=== PATIENT | female | born 1970 | race Asian ===

== ENCOUNTER 2016-12-17 10:06 | Emergency (ER) | payer MEDICAID ==
[~2016-12-17] VITALS: Ht 154.9 cm; Wt 50.0 kg
[2016-12-17] MEDS ORDERED: IOHEXOL 350 MG/ML 10 ML VIAL (for RAD DIAG) IVCONTRAST ONE (10:07)
[2016-12-17 10:11] VITALS: BP 86/94; PULSE 94; RESP 20; TEMP 98.8; O2SAT 100
[2016-12-17 10:15] VITALS: BP 167/89
[2016-12-17 10:27] VITALS: BP 170/84; PULSE 101; O2SAT 100
[2016-12-17] MEDS ORDERED: SODIUM CHLORIDE 0.9% FLUSH 10 ML FLUSH IV FLUSH PRN (10:30)
[2016-12-17 10:37] VITALS: PULSE 101; RESP 17; TEMP 97.8; O2SAT 99
--- NOTE | 2016-12-17 10:40 | PD ---
HPI Chief Complaint: Abdominal Pain Time Seen by Provider: 10:17 Travel History International Travel<30 days: No Contact w/Intl Traveler<30days: No Traveled to known affect area: No History of Present Illness HPI Patient is a 46-year-old female presenting for evaluation of abdominal pain and distention, dysuria. Patient states that she's had urinary frequency and burning with urination for the last 2 days, she reports abdominal distention and increased pain that started yesterday. Patient states normally she has a flat stomach. She reports the pain as a 4 out of 10. There are no alleviating or exacerbating factors. Azo for the urinary symptoms with no relief. She denies a fever, chills, nausea, vomiting, constipation or diarrhea. She denies any chance of with her last menstrual cycle this month. Patient denies any significant past medical history. [facility] Past Medical History Medical History: Denies Significant Hx Past Surgical History Surgical History: No Previous Surgery Social History Alcohol Use: No Tobacco Use: No Substance Use: No Allergies-Medications (Allergen,Severity, Reaction): Coded Allergies: No Known Allergies (Unverified , 12/17/16) Reported Meds & Prescriptions Reported Meds & Active Scripts Active No Active Prescriptions or Reported Medications Review of Systems Except as stated in HPI: all other systems reviewed are Neg General / Constitutional: No: Fever, Chills HENT: No: Headaches Cardiovascular: No: Chest Pain or Discomfort Respiratory: No: Shortness of Breath Gastrointestinal: Positive: Abdominal Pain, No: Nausea, Vomiting Genitourinary: Positive: Frequency, Dysuria, No: Discharge, Vaginal Bleeding Musculoskeletal: No: Myalgias Physical Exam Narrative GENERAL: Well-developed, well-nourished, alert female. Resting comfortably in no acute distress. SKIN: Warm and dry. No rash or obvious lesions noted. HEAD: Atraumatic. Normocephalic. EYES: Pupils equal and round. No scleral icterus. No injection or drainage. ENT: No nasal bleeding or discharge. Mucous membranes pink and moist. NECK: Trachea midline. No JVD. CARDIOVASCULAR: Regular rate and rhythm. RESPIRATORY: No accessory muscle use. Clear to auscultation. Breath sounds equal bilaterally. GASTROINTESTINAL: Abdomen soft, mildly tender to palpation over suprapubic region. Moderate distention noted. Hepatic and splenic margins not palpable. Positive bowel sounds, no rebound, no guarding. MUSCULOSKELETAL: Extremities without clubbing, cyanosis, or edema. No obvious deformities. NEUROLOGICAL: Awake and alert. No obvious cranial nerve deficits. Motor grossly within normal limits. Five out of 5 muscle strength in the arms and legs. Normal speech. PSYCHIATRIC: Appropriate mood and affect; insight and judgment normal. Data Data Last Documented VS Vital Signs Date Time Temp Pulse Resp B/P (MAP) Pulse Ox O2 Delivery O2 Flow Rate FiO2 12/17/16 10:37 97.8 101 17 99 Room Air Orders Orders Complete Blood Count With Diff (12/17/16 10:22) Comprehensive Metabolic Panel (12/17/16 10:22) Urinalysis - C+S If Indicated (12/17/16 10:22) Iv Access Insert/Monitor (12/17/16 10:22) Ecg Monitoring (12/17/16 10:22) Oximetry (12/17/16 10:22) Sodium Chloride 0.9% Flush (Ns Flush) (12/17/16 10:30) Ed Urine Pregnancytest Poc (12/17/16 10:22) Ed Poc Ultrasound (12/17/16 ) Ceftriaxone Inj (Rocephin Inj) (12/17/16 11:30) Ct Abd/Pel W Iv Contrast(Rout) (12/17/16 ) Urinary Catheter Insert/Apply (12/17/16 11:40) Iohexol 350 Inj (Omnipaque 350 Inj) (12/17/16 10:07) Labs Laboratory Tests Test 12/17/16 10:03 White Blood Count 7.6 TH/MM3 Red Blood Count 4.16 MIL/MM3 Hemoglobin 9.7 GM/DL Hematocrit 31.6 % Mean Corpuscular Volume 76.0 FL Mean Corpuscular Hemoglobin 23.4 PG Mean Corpuscular Hemoglobin Concent 30.8 % Red Cell Distribution Width 15.4 % Platelet Count 410 TH/MM3 Mean Platelet Volume 7.1 FL Neutrophils (%) (Auto) 74.3 % Lymphocytes (%) (Auto) 13.7 % Monocytes (%) (Auto) 6.6 % Eosinophils (%) (Auto) 4.2 % Basophils (%) (Auto) 1.2 % Neutrophils # (Auto) 5.6 TH/MM3 Lymphocytes # (Auto) 1.0 TH/MM3 Monocytes # (Auto) 0.5 TH/MM3 Eosinophils # (Auto) 0.3 TH/MM3 Basophils # (Auto) 0.1 TH/MM3 CBC Comment DIFF FINAL Differential Comment Urine Color BROWN Urine Turbidity CLEAR Urine pH 6.0 Urine Specific [place] 1.003 Urine Protein NEG mg/dL Urine Glucose (UA) NEG mg/dL Urine Ketones NEG mg/dL Urine Occult Blood NEG Urine Nitrite POS Urine Bilirubin NEG Urine Urobilinogen LESS THAN 2.0 MG/DL Urine Leukocyte Esterase NEG Urine RBC 1 /hpf Urine WBC LESS THAN 1 /hpf Urine Squamous Epithelial Cells <1 /hpf Microscopic Urinalysis Comment CULT NOT INDICATED Blood Urea Nitrogen 7 MG/DL Creatinine 0.61 MG/DL Random Glucose 106 MG/DL Total Protein 8.5 GM/DL Albumin 3.7 GM/DL Calcium Level 8.7 MG/DL Alkaline Phosphatase 125 U/L Aspartate Amino Transf (AST/SGOT) 18 U/L Alanine Aminotransferase (ALT/SGPT) 24 U/L Total Bilirubin 0.2 MG/DL Sodium Level 140 MEQ/L Potassium Level 4.2 MEQ/L Chloride Level 105 MEQ/L Carbon Dioxide Level 25.6 MEQ/L Anion Gap 9 MEQ/L Estimat Glomerular Filtration Rate 107 ML/MIN MDM Medical Decision Making Medical Screen Exam Complete: Yes Emergency Medical Condition: Yes Interpretation(s) Last Impressions Abdomen/Pelvis CT 12/17/16 0000 Signed Impressions: Service Date/Time: November 13:00 - CONCLUSION: 1. The uterus is enlarged and diffusely inhomogeneous with multiple ill-defined masses most characteristic of leiomyomata. 2. Small simple appearing cystic structure in the right ovary. 3. Mild hydronephrosis right greater than left. There is dilatation of both ureters. Eliazar Herrign MD Laboratory Tests Test 12/17/16 10:03 White Blood Count 7.6 TH/MM3 Red Blood Count 4.16 MIL/MM3 Hemoglobin 9.7 GM/DL Hematocrit 31.6 % Mean Corpuscular Volume 76.0 FL Mean Corpuscular Hemoglobin 23.4 PG Mean Corpuscular Hemoglobin Concent 30.8 % Red Cell Distribution Width 15.4 % Platelet Count 410 TH/MM3 Mean Platelet Volume 7.1 FL Neutrophils (%) (Auto) 74.3 % Lymphocytes (%) (Auto) 13.7 % Monocytes (%) (Auto) 6.6 % Eosinophils (%) (Auto) 4.2 % Basophils (%) (Auto) 1.2 % Neutrophils # (Auto) 5.6 TH/MM3 Lymphocytes # (Auto) 1.0 TH/MM3 Monocytes # (Auto) 0.5 TH/MM3 Eosinophils # (Auto) 0.3 TH/MM3 Basophils # (Auto) 0.1 TH/MM3 CBC Comment DIFF FINAL Differential Comment Urine Color BROWN Urine Turbidity CLEAR Urine pH 6.0 Urine Specific [place] 1.003 Urine Protein NEG mg/dL Urine Glucose (UA) NEG mg/dL Urine Ketones NEG mg/dL Urine Occult Blood NEG Urine Nitrite POS Urine Bilirubin NEG Urine Urobilinogen LESS THAN 2.0 MG/DL Urine Leukocyte Esterase NEG Urine RBC 1 /hpf Urine WBC LESS THAN 1 /hpf Urine Squamous Epithelial Cells <1 /hpf Microscopic Urinalysis Comment CULT NOT INDICATED Blood Urea Nitrogen 7 MG/DL Creatinine 0.61 MG/DL Random Glucose 106 MG/DL Total Protein 8.5 GM/DL Albumin 3.7 GM/DL Calcium Level 8.7 MG/DL Alkaline Phosphatase 125 U/L Aspartate Amino Transf (AST/SGOT) 18 U/L Alanine Aminotransferase (ALT/SGPT) 24 U/L Total Bilirubin 0.2 MG/DL Sodium Level 140 MEQ/L Potassium Level 4.2 MEQ/L Chloride Level 105 MEQ/L Carbon Dioxide Level 25.6 MEQ/L Anion Gap 9 MEQ/L Estimat Glomerular Filtration Rate 107 ML/MIN Vital Signs Date Time Temp Pulse Resp B/P (MAP) Pulse Ox O2 Delivery O2 Flow Rate FiO2 12/17/16 10:27 101 170/84 (112) 100 12/17/16 10:15 167/89 (115) 12/17/16 10:11 98.8 94 20 86/94 (91) 100 Room Air Differential Diagnosis versus urinary retention versus urinary tract infection versus mass versus other Narrative Course Patient is a 46-year-old female that presented to emergency for evaluation of abdominal distention and urinary symptoms started 2 days ago. Patient's vital signs are stable. Labs and imaging ordered and pending. UA is positive for nitrites CBC with a mild anemia with H/H of 9.7/31.6 CMP with no acute findings Bedside US performed by Dr. Pedroza showed bladder distention. Pelvic exam with normal external genitalia without lesions or erythema. Vaginal vault with trace blood, no drainage. Cervical os was closed without drainage. No cervical motion tenderness. Uterus nontender and nonenlarged. Bilateral adnexa nontender without masses. LMP finished a few days ago. Urinary catheter placed and ~1000ml urine drained. CT of the abd/pelvis ordered to assess for mass causing obstruction. CT of the abdomen and pelvis shows an enlarged uterus with multiple ill-defined mass is most characteristic of leiomyomata, bilateral hydronephrosis greater than left with dilatation of both ureters, a small simple-appearing cystic structure in the right ovary. Dr. Pedroza discussed patient with OB hospitalist, patient will be discharged home with the indwelling urinary catheter and leg bag. She will follow up with Dr. Espinoza . She was advised to return to emergency department immediately for any new or worsening symptoms, she was encouraged to also follow up with her primary care doctor. Patient verbalized understanding of instructions. Discharge instructions were also addressed with patient by Dr. Pedroza Diagnosis Primary Impression: Urinary tract infection Qualified Codes: N39.0 - Urinary tract infection, site not specified; R31.9 - Hematuria, unspecified Additional Impressions: Uterine fibroid Qualified Codes: D25.9 - Leiomyoma of uterus, unspecified Urinary retention Referrals: Syed Senior MD 2 days Patient Instructions: Acute Urinary Retention in Women (GEN), General Instructions, Urinary Leg Bag (GEN), Urinary Tract Infection in Women (ED) Additional Instructions: Follow up with Dr. Senior in his office, please call to schedule an appointment Complete full course of antibiotics as prescribed Return to emergency department for any new or worsening symptoms Med/Other Pt SpecificInfo: Prescription(s) given Scripts Nitrofurantoin Monohydrate Macrocrystals (Macrobid) 100 Mg Capsule 100 MG PO BID for Infection, #14 CAP 0 Refills Prov: Shereen Mohan 12/17/16 Disposition: 01 DISCHARGE HOME Condition: Stable Shereen Mohan Dec 17, 2016 10:40
[2016-12-17 10:47] LABS: BLOOD, URINE NEG (NEG); GLUCOSE,URINE NEG (NEG); KETONE, URINE NEG (NEG); NITRITE,URINE POS (NEG); SQUAMOUS EPITHELIAL CELL URINE <1 /hpf (0-5)
[2016-12-17 10:48] LABS: AUTOMATED NEUTROPHIL # 5.6 TH/MM3 (1.8-7.7); BASOPHIL # 0.1 TH/MM3 (0-0.2); BASOPHIL % 1.2 % (0.0-2.0); COMMENT (UR) CULT NOT INDICATED; CULTURE IF INDICATED CULT NOT INDICATED; EOSINOPHIL # 0.3 TH/MM3 (0-0.4); EOSINOPHIL % 4.2 % (0.0-4.0); HEMATOCRIT 31.6 % (35.0-46.0); HEMO FLAGS DIFF FINAL; LYMPH % 13.7 % (9.0-44.0); MEAN CORPUSCULAR HEMOGLOBIN 23.4 PG (27.0-34.0); MEAN CORPUSCULAR HGB CONC 30.8 % (32.0-36.0); MONO % 6.6 % (0.0-8.0); NEUT % 74.3 % (16.0-70.0); PLATELET COUNT 410 TH/MM3 (150-450); RED BLOOD COUNT 4.16 MIL/MM3 (4.00-5.30); RED CELL DISTRIBUTION WIDTH 15.4 % (11.6-17.2); URINE COLOR BROWN (YELLW/STRAW); WHITE BLOOD COUNT 7.6 TH/MM3 (4.0-11.0)
[2016-12-17 11:04] LABS: ALT (GPT) 24 U/L (10-53); ANION GAP 9 MEQ/L (5-15); AST (GOT) 18 U/L (15-37); BICARBONATE 25.6 MEQ/L (21.0-32.0); BLOOD UREA NITROGEN 7 MG/DL (7-18); CHLORIDE 105 MEQ/L (98-107); GLOMERULAR FILTRATION RATE 107 ML/MIN (>89); POTASSIUM 4.2 MEQ/L (3.5-5.1); SODIUM (NA) 140 MEQ/L (136-145)
[2016-12-17 11:07] LABS: ALKALINE PHOSPHATASE 125 U/L (45-117); TOTAL BILIRUBIN ADULT 0.2 MG/DL (0.2-1.0)
[2016-12-17] MEDS ORDERED: cefTRIAXone INJ 2,000 MG in SODIUM CHLORIDE 0.9% INJ 100 ML IV ONE (11:30)
--- NOTE | 2016-12-17 13:20 | RADRPT ---
EXAM DATE/TIME: 12/17/2016 13:00 [place] COMPARISON: No previous studies available for comparison. INDICATIONS : Abdomen pain and distention for one day with painful urination for three days. IV CONTRAST: 87 cc Omnipaque 350 (iohexol) IV ORAL CONTRAST: No oral contrast ingested. RADIATION DOSE: 9.96 CTDIvol (mGy) MEDICAL HISTORY : None SURGICAL HISTORY : None. ENCOUNTER: Initial ACUITY: 3 days PAIN SCALE: 6/10 LOCATION: Bilateral lower quadrant TECHNIQUE: Volumetric scanning of the abdomen and pelvis was performed. Using automated exposure control and ad justment of the mA and/or kV according to patient size, radiation dose was kept as low as reasonably achievable to obtain optimal diagnostic quality images. DICOM format image data is available electro nically for review and comparison. FINDINGS: LOWER LUNGS: The visualized lower lungs are clear. LIVER: Homogeneous density without lesion. There is no dilation of the biliary tree. No calcified gallston es. SPLEEN: Normal size without lesion. PANCREAS: Within normal limits. KIDNEYS: Normal in size and shape. There is no mass or calculi. There is mild bilateral hydronephrosis right greater than left with dilatation of both ureters down to the level of the mid pelvis. ADRENAL GLANDS: Within normal limits. VASCULAR: There is no aortic aneurysm. BOWEL/MESENTERY: The stomach, small bowel, and colon demonstrate no acute abnormality. There is no free intraperitone al air or fluid. ABDOMINAL WALL: Within normal limits. RETROPERITONEUM: There is no lymphadenopathy. BLADDER: No wall thickening or mass. REPRODUCTIVE: The uterus is enlarged and diffusely inhomogeneous with multiple ill-defined masslike areas. The larg est is in the fundal region measuring up to 8.1 x 7.5 cm. There is a benign cystic structure in the r ight ovary measuring 2.8 x 1.7 cm. INGUINAL: There is no lymphadenopathy or hernia. MUSCULOSKELETAL: Within normal limits for patient age. CONCLUSION: 1. The uterus is enlarged and diffusely inhomogeneous with multiple ill-defined masses most character istic of leiomyomata. 2. Small simple appearing cystic structure in the right ovary. 3. Mild hydronephrosis right greater than left. There is dilatation of both ureters. Eliazar Herring MD on December 17, 2016 at 13:15 Board Certified Radiologist. This report was verified electronically.
--- NOTE | 2016-12-17 14:09 | PD ---
Data Data Last Documented VS Vital Signs Date Time Temp Pulse Resp B/P (MAP) Pulse Ox O2 Delivery O2 Flow Rate FiO2 12/17/16 10:37 97.8 101 17 99 Room Air Orders Orders Complete Blood Count With Diff (12/17/16 10:22) Comprehensive Metabolic Panel (12/17/16 10:22) Urinalysis - C+S If Indicated (12/17/16 10:22) Iv Access Insert/Monitor (12/17/16 10:22) Ecg Monitoring (12/17/16 10:22) Oximetry (12/17/16 10:22) Sodium Chloride 0.9% Flush (Ns Flush) (12/17/16 10:30) Ed Urine Pregnancytest Poc (12/17/16 10:22) Ed Poc Ultrasound (12/17/16 ) Ceftriaxone Inj (Rocephin Inj) (12/17/16 11:30) Ct Abd/Pel W Iv Contrast(Rout) (12/17/16 ) Urinary Catheter Insert/Apply (12/17/16 11:40) Iohexol 350 Inj (Omnipaque 350 Inj) (12/17/16 10:07) Labs Laboratory Tests Test 12/17/16 10:03 White Blood Count 7.6 TH/MM3 Red Blood Count 4.16 MIL/MM3 Hemoglobin 9.7 GM/DL Hematocrit 31.6 % Mean Corpuscular Volume 76.0 FL Mean Corpuscular Hemoglobin 23.4 PG Mean Corpuscular Hemoglobin Concent 30.8 % Red Cell Distribution Width 15.4 % Platelet Count 410 TH/MM3 Mean Platelet Volume 7.1 FL Neutrophils (%) (Auto) 74.3 % Lymphocytes (%) (Auto) 13.7 % Monocytes (%) (Auto) 6.6 % Eosinophils (%) (Auto) 4.2 % Basophils (%) (Auto) 1.2 % Neutrophils # (Auto) 5.6 TH/MM3 Lymphocytes # (Auto) 1.0 TH/MM3 Monocytes # (Auto) 0.5 TH/MM3 Eosinophils # (Auto) 0.3 TH/MM3 Basophils # (Auto) 0.1 TH/MM3 CBC Comment DIFF FINAL Differential Comment Urine Color BROWN Urine Turbidity CLEAR Urine pH 6.0 Urine Specific [place] 1.003 Urine Protein NEG mg/dL Urine Glucose (UA) NEG mg/dL Urine Ketones NEG mg/dL Urine Occult Blood NEG Urine Nitrite POS Urine Bilirubin NEG Urine Urobilinogen LESS THAN 2.0 MG/DL Urine Leukocyte Esterase NEG Urine RBC 1 /hpf Urine WBC LESS THAN 1 /hpf Urine Squamous Epithelial Cells <1 /hpf Microscopic Urinalysis Comment CULT NOT INDICATED Blood Urea Nitrogen 7 MG/DL Creatinine 0.61 MG/DL Random Glucose 106 MG/DL Total Protein 8.5 GM/DL Albumin 3.7 GM/DL Calcium Level 8.7 MG/DL Alkaline Phosphatase 125 U/L Aspartate Amino Transf (AST/SGOT) 18 U/L Alanine Aminotransferase (ALT/SGPT) 24 U/L Total Bilirubin 0.2 MG/DL Sodium Level 140 MEQ/L Potassium Level 4.2 MEQ/L Chloride Level 105 MEQ/L Carbon Dioxide Level 25.6 MEQ/L Anion Gap 9 MEQ/L Estimat Glomerular Filtration Rate 107 ML/MIN MDM Supervised Visit with ETHAN: Yes Narrative Course The history, exam, and medical decision-making in the associated mid-level provider note were completed with my assistance. I reviewed and agree with the findings presented. I attest that I had a [id number] encounter with the patient on the same day, and personally performed and documented my assessment and findings in the medical record. *My assessment and Findings: 46 year-old woman presents emergency Department with urinary difficulty and abdominal distention. She states that since it started this overnight. Bedside ultrasound shows distended bladder with hydronephrosis bilaterally. Etiology of the symptoms seems to be a large fibroid uterus. I spoke with the OB hospitalist on-call, who recommended outpatient follow-up with gynecology. Barnes catheter is been placed. BUN and creatinine are normal right now. We'll switch her to a leg bag, have her return for any worsening symptoms. Oral antibiotics. Scripts No Active Prescriptions or Reported Meds Rohit Pedroza MD Dec 17, 2016 14:09
[2016-12-17] MEDS ORDERED: MACR100C2 PO (14:10)
[2016-12-17 15:05] VITALS: BP 110/77; TEMP 97.8
== END 2016-12-17 15:05 | disposition home or self-care (01) ==
LOC: NEPD 10:06
DX: N39.0 Urinary tract infection, site not specified (principal); D25.9 Leiomyoma of uterus, unspecified; R33.9 Retention of urine, unspecified; N13.30 Unspecified hydronephrosis
CPT/HCPCS: 74177; 80053; 81001; 84703; 85025; 96365; 99285; J0696; Q9967